=== PATIENT | female | born 1995 | race American Indian/Alaskan Native ===

== ENCOUNTER 2024-10-06 20:11 | Emergency (ER) | payer BC ==
[~2024-10-06] VITALS: Ht 160 cm; Wt 93.9 kg
[2024-10-06 20:28] VITALS: TEMP 98
--- NOTE | 2024-10-06 20:46 | Physician Documentation ---
History of Present Illness Chief Complaint: Abdominal Pain Stated Complaint: ABDOMINAL PAIN HPI Patient presents to the emergency room with nausea vomiting diarrhea since yesterday. Patient just got back from a trip to [facility] and two of her colleagues are having similar symptoms. She is also endorsing some chills. Also intermittent abdominal pain when diarrhea. Medication Reconciliation Allergies: Coded Allergies: No Known Allergies (Unverified , 10/06/24) Review of Systems ROS All review of systems negative except as per HPI Physical Exam Vital Signs: Temperature: 98.0, Source: Temporal, Heart Rate: 112, Respiratory Rate: 16, BP: 116/78, Pulse Oximetry: 97, Weight: 93.900 Oxygen Flow Rate: 0 Physical Exam General: Patient is awake, alert, oriented x4 in no acute distress and well appearing.~ Head: Normocephalic and atraumatic. Eyes: Conjunctival normal. EOMI. PERRL. ENT: Mucous membranes moist. Neck: Supple, trachea is midline. Chest: Clear to auscultation bilaterally without rales, rhonchi, or wheezes. There is no accessory muscle use or retractions. Cardiac: Tachycardic and regular without murmurs, gallops, or rubs. Abd: Soft, nondistended, mild diffuse tenderness to palpation without peritonitis Progress Results/Orders Results/Orders Vital Signs 10/06/24 20:28 Temp 98.0 Pulse 112 Resp 16 B/P (MAP) 116/78 Pulse Ox 97 O2 Flow Rate 0 Laboratory Tests Test 10/06/24 20:41 Medical Decision Making Findings Patient presented to the emergency room with nausea vomiting and diarrhea. Differentials include but are not limited to dehydration, electrolyte disturbances, , gastroenteritis therefore emergent labs ordered which were reassuring. Patient is feeling much better after Zofran administration feels well enough to go home. Given reassuring labs vitals and course in the emergency room I do not feel patient requires any emergency imaging at this time. ER precautions discussed. Departure Disposition: HOME / SELF CARE / HOMELESS Impression: Primary Impression: Acute gastroenteritis Condition: Improved Discharge Instructions: Viral Gastroenteritis, Adult Referrals: NO PRIMARY CARE PROVIDER (PCP) Prescriptions Loperamide Hcl (Loperamide) 2 Mg Capsule 2 CAP PO Q6H for loose stool for 5 Days, #40 CAP 0 Refills Prov: PETER NASSAR MD 6/18/25 Ondansetron 8mg ODT (Ondansetron Odt) 8 Mg Tab.rapdis 1 TAB PO Q6H for nausea/vomiting for 3 Days, #12 TAB 0 Refills Prov: PETER NASSAR MD 10/07/24 Education Educated: Patient Educated regarding: diagnosis, treatment, need for follow up Additional Comment Medical Screen Exam History: This 29-year-old female presents with one-week of nausea, vomiting, and diarrhea along with developing lower abdominal pain today. Patient reports no blood in stool. Patient reports recent trip to [facility] Exam: VITALS: Reviewed and as above. GENERAL: Alert, nontoxic appearing, no apparent distress. RESPIRATORY: No increased work of breathing, no respiratory distress, speaking in full clear sentences MSE performed in triage and patient returned to ED lobby by nursing staff The note accurately reflects work and decisions made by me.JANUSZ Vaz 10/06/24 20:46 Signature Scribe Signature: No scribe Attestation: The note accurately reflects work and decisions made by me.Peter Nassar MD 10/07/24 00:42 JUAN JACOBSON Oct 06, 2024 20:46 PETER NASSAR MD Oct 07, 2024 00:15
[2024-10-06 20:47] LABS: BASOPHILS % (AUTO) 0.4 % (0-1); EOSINOPHILS % (AUTO) 0.3 % (0-6); HEMATOCRIT 39.6 % (35.0-45.0); HEMOGLOBIN 13.2 g/dl (12.0-16.0); LYMPHOCYTES # (AUTO) 1.3 X10'3 (1.1-4.8); LYMPHOCYTES % (AUTO) 16.4 % (21-51); MEAN CORPUSCULAR HGB CONC 33.4 g/dL (33.0-36.5); MEAN CORPUSCULAR VOLUME 74.9 FL (78-98); MEAN PLATELET VOLUME 7.8 FL (7.4-10.4); MONOCYTES # (AUTO) 0.4 X10'3 (0-0.9); MONOCYTES % (AUTO) 4.3 % (2-12); NEUTROPHILS # (AUTO) 6.4 X10'3 (1.8-7.7); NEUTROPHILS % (AUTO) 78.6 % (42-75); PLATELET COUNT 261 X10'3 (140-440); RED BLOOD COUNT 5.29 X10'6 (4.20-5.60); RED CELL DISTRIBUTION WIDTH 14.7 % (11.5-14.5); WHITE BLOOD COUNT 8.1 X10'3 (4.5-11.0)
[2024-10-06 21:00] LABS: ALANINE AMINOTRANSFERASE 51 U/L (12-78); ALBUMIN 3.4 G/DL (3.4-5.0); ALBUMIN/GLOBULIN RATIO 0.7 (1.1-1.5); ALKALINE PHOSPHATASE 83 IU/L (46-116); ANION GAP 13 (8-16); ASPARTATE AMINO TRANSFERASE 56 U/L (10-37); BILIRUBIN,TOTAL 0.3 MG/DL (0.1-1.0); BLOOD UREA NITROGEN 5 MG/DL (7-18); BUN/CREATININE RATIO 5.7 (10.0-20.0); CALCIUM 8.8 MG/DL (8.5-10.1); CHLORIDE 101 MMOL/L (99-107); CREATININE 0.87 MG/DL (0.40-0.90); GLUCOSE 122 MG/DL (70-104); LIPASE 46 U/L (16-77); POTASSIUM 3.3 MMOL/L (3.5-5.1); SODIUM 139 MMOL/L (135-145); TOTAL CARBON DIOXIDE 25.1 MMOL/L (24-32); TOTAL PROTEIN 8.4 G/DL (6.4-8.2); eCRCL 80 ML/MIN; eGFR 78 ML/MIN
[2024-10-06 23:03] LABS: URINE HCG NEGATIVE (NEG)
[2024-10-06 23:06] LABS: BILIRUBIN,URINE NEGATIVE (Neg); CLARITY,URINE CLEAR (Clear); COLOR,URINE YELLOW (Yellow); GLUCOSE, URINE NEGATIVE (Neg); KETONES,URINE TRACE mg/dl (Neg); LEUKOCYTE ESTERASE ,URINE NEGATIVE (Neg); NITRITES, URINE NEGATIVE (Neg); OCCULT BLOOD,URINE SMALL (Neg); PROTEIN,URINE 100 mg/dl (Neg); UROBILINOGEN,URINE 0.2 E.U/dL (0.2-1.0)
[2024-10-06 23:11] LABS: UA COLLECTION TYPE CLN CATCH MIDSTREAM
[2024-10-06 23:13] LABS: BACTERIA,URINE FEW /HPF (Neg); RBC,URINE 0-2 /HPF (0-2); SQUAMOUS EPITHELIAL CELL,UR MODERATE /LPF (FEW)
[2024-10-06 23:14] LABS: AMORPHOUS URATES 1+; MUCUS STRANDS FEW /LPF (Neg)
[2024-10-07] MEDS: loperamide 2mg capsule PO ONE (00:23)
[2024-10-07] MEDS: ondansetron 4mg rapidly disintigrating tab PO ONE (00:23)
[2024-10-07] MEDS ORDERED: ONDA-245 PO (00:41)
[2024-10-07] MEDS ORDERED: LOPE2CAP PO (00:41)
[2024-10-07 00:58] VITALS: BP 119/72; PULSE 96; RESP 20; O2SAT 98
== END 2024-10-07 00:59 | disposition home or self-care (01) ==
LOC: ER 20:12
DX: K52.9 Noninfective gastroenteritis and colitis, unspecified (principal)
CPT/HCPCS: 36415; 80053; 81001; 81025; 83690; 85025; 87088; 99283